=== PATIENT | male | born 2005 | race African-American/Black ===

== ENCOUNTER 2023-04-06 03:00 | Emergency (ER) | payer OTHER, SELFPAY ==
[2023-04-06] MEDS ORDERED: Lorazepam 2 MG/ML VIAL ONE (03:23)
[2023-04-06 04:39] LABS: ALT (SGPT) 11 U/L (8-55); AST (SGOT) 18 U/L (10-45); Albumin 4.7 g/dL (3.5-5.0); Alkaline Phosphatase 96 U/L (50-130); Anion Gap 18 mmol/L (10-20); BUN (Urea Nitrogen) 12 mg/dL (8.4-21.0); Bilirubin, Total 0.8 mg/dL (0.2-1.2); Calc. Creatinine Clearance 0 mL/min (70-130); Calcium 9.8 mg/dL (7.8-10.44); Carbon Dioxide 21 mmol/L (22-29); Chloride 106 mmol/L (98-107); Estimated GFR 101; Globulin 3.6 g/dL (2.4-3.5); Glucose 87 mg/dL (70-105); Potassium 3.3 mmol/L (3.5-5.1); Protein, Total 8.3 g/dL (6.0-8.3); Sodium 142 mmol/L (136-145)
[2023-04-06 04:46] LABS: Acetaminophen Less than 10 mcg/mL (10.0-30.0); Salicylate Less than 8.0 mg/dL (15.0-30.0)
[2023-04-06] MEDS ORDERED: Haloperidol Lactate 5 MG/ML VIAL ONE (07:10)
== END 2023-04-06 09:14 | disposition home or self-care (01) ==
LOC: CSHERS 03:00 → EEVIPCON 03:00 → CSHERS 09:14
DX: R45.4 Irritability and anger (principal); F10.129 Alcohol abuse with intoxication, unspecified; Y90.4 Blood alcohol level of 80-99 mg/100 ml; F19.10 Other psychoactive substance abuse, uncomplicated
CPT/HCPCS: 36415; 80053; 80307; 96372; 99285; J1630; J2060